=== PATIENT | female | born 2000 | race Caucasian/White ===

== ENCOUNTER 2024-08-20 20:48 | Emergency (ER) | payer BC ==
[2024-08-20] MEDS ORDERED: Ibuprofen 800 MG TAB ONE (21:09)
[2024-08-20] MEDS ORDERED: Ondansetron ODT 4 MG TAB ONE (21:10)
[2024-08-20] MEDS ORDERED: predniSONE 20 MG TAB ONE (22:29)
[2024-08-20] MEDS ORDERED: Albuterol 200 PUFF (6.7GM INHALER) ONE (22:34)
== END 2024-08-20 23:06 | disposition home or self-care (01) ==
LOC: ERS 20:48
DX: J11.1 Influenza due to unidentified influenza virus with other respiratory manifestations (principal)
CPT/HCPCS: 87428; J7512; Q0162